=== PATIENT | female | born 1985 | race African-American/Black ===

== ENCOUNTER 2019-11-17 13:22 | Emergency (ER) | payer MEDICAID ==
[~2019-11-17] VITALS: Ht 160 cm; Wt 49.9 kg
[2019-11-17 13:30] VITALS: BP 124/70
[2019-11-17] MEDS ORDERED: Morphine Sulfate 4mg/ml Inj (IV USE ONLY) IVP ONE (14:00)
--- NOTE | 2019-11-17 14:07 | Emergency Room Report ---
History of Present Illness General Chief Complaint: Abdominal Pain Source: Patient, EMS Present Illness HPI Patient presents emergency department today complaint 2 days of worsening pelvic pain. She states the pain is worse on the left side rating into her groin. She denies any nausea or vomiting. States that her period was last month but it was only a small amount. She does have a implanted control so she does not have periods. She states that in addition her left labia has become more swollen very tender and painful. She is never had this before. No other complaints are noted. Symptoms noted to be severe. No other modifying factors. No other associated signs and symptoms. No other complaints were noted. Allergies: Coded Allergies: No Known Allergies (Unverified , 11/17/19) Patient History PMH Narrative History of ovarian cysts Past Surgical History: none Pertinent Family History: none Social History: Denies: smoking, alcohol use, drug use Reviewed Nursing Documentation: PMH: Agreed; PSxH: Agreed Nursing Documentation-PMH Past Medical History: No History, Except For Hx Asthma: Yes Review of Systems All Other Systems: negative except mentioned in HPI Physical Exam Vital Signs Date Time Temp Pulse Resp B/P (MAP) Pulse Ox O2 Delivery O2 Flow Rate FiO2 11/17/19 13:15 98.1 88 16 126/70 (88) 99 Room Air Sp02 EP Interpretation: reviewed, normal General Appearance: normal inspection, alert, mild distress - Due to pain Head: atraumatic Eyes: bilateral eye normal inspection ENT: normal ENT inspection, hearing grossly normal, normal voice Neck: normal inspection, full range of motion, supple, no bony tend Respiratory: normal inspection, lungs clear, normal breath sounds, no respiratory distress, no retraction, no wheezing Cardiovascular #1: regular rate, rhythm, no edema Gastrointestinal: normal inspection, normal bowel sounds, non tender, soft, no guarding, no hernia Genitourinary: no CVA tenderness, other - Left-sided labial swelling. Consistent with Bartholin cyst. Musculoskeletal: normal inspection, back normal, normal range of motion Neurologic: alert, responsive, speech normal, normal inspection Psychiatric: normal inspection, judgement/insight normal, mood/affect normal Skin: no rash Procedures Additional Procedure Procedure Narrative Bartholin's cyst debridement. Procedure note. After consent was obtained. Bartholin's cyst was localized on patient's left labial region. 1% lidocaine was injected into the vagina no wall. And 2 cc was used. There is adequate analgesia. Using a 11 blade I attempt to incise the Bartholin cyst from inside the vaginal canal. Unfortunately this was unsuccessful as the cyst appeared to be deeper than expected. Therefore further approach was abandoned. Instead using 18-gauge needle this was inserted into the area of maximal swelling approximately 10 cc of pus was aspirated. Patient felt much better fluctuance had disappeared after the aspiration. Therefore I feel the patient be discharged. Patient was given wound care instructions. Patient will be started on oral antibiotics. Recommend outpatient follow-up with NEUROSURGERY PHYSICIAN. Medical Decision Making Diagnostic Impression: Primary Impression: Bartholin cyst Additional Impressions: Ovarian cyst Pelvic pain ER Course Patient presents emergency department today complaint pelvic pain and labial swelling. Differential considerations for pelvic pain include ovarian cyst ovarian torsion UTI just name a few. Patient's exam is consistent with likely ovarian cyst. This was confirmed by ultrasound. There is no evidence of torsion. Patient has evidence of a Bartholin's cyst on exam. This was drained using a needle. Patient was given prescription for antibiotics pain medications. Recommend close outpatient follow-up. Patient is advised to follow up with primary doctor in 2-3 days and return the emergency room for any worsening symptoms and as needed. Labs Test 11/17/19 13:53 11/17/19 13:58 White Blood Count 15.8 K/UL (4.8-10.8) Red Blood Count 4.51 M/UL (4.20-5.40) Hemoglobin 13.2 G/DL (12.0-16.0) Hematocrit 41.0 % (37.0-47.0) Mean Corpuscular Volume 91 FL (80-99) Mean Corpuscular Hemoglobin 29.3 PG (27.0-31.0) Mean Corpuscular Hemoglobin Concent 32.3 G/DL (32.0-36.0) Red Cell Distribution Width 11.9 % (11.6-14.8) Platelet Count 217 K/UL (150-450) Mean Platelet Volume 8.0 FL (6.5-10.1) Neutrophils (%) (Auto) 83.5 % (45.0-75.0) Lymphocytes (%) (Auto) 9.4 % (20.0-45.0) Monocytes (%) (Auto) 5.9 % (1.0-10.0) Eosinophils (%) (Auto) 0.8 % (0.0-3.0) Basophils (%) (Auto) 0.4 % (0.0-2.0) Sodium Level 144 MMOL/L (136-145) Potassium Level 3.8 MMOL/L (3.5-5.1) Chloride Level 107 MMOL/L (98-107) Carbon Dioxide Level 28 MMOL/L (21-32) Anion Gap 9 mmol/L (5-15) Blood Urea Nitrogen 13 mg/dL (7-18) Creatinine 0.8 MG/DL (0.55-1.30) Estimat Glomerular Filtration Rate > 60 mL/min (>60) Glucose Level 100 MG/DL (74-106) Calcium Level 9.0 MG/DL (8.5-10.1) Total Bilirubin 0.8 MG/DL (0.2-1.0) Aspartate Amino Transf (AST/SGOT) 15 U/L (15-37) Alanine Aminotransferase (ALT/SGPT) 19 U/L (12-78) Alkaline Phosphatase 86 U/L (46-116) Total Protein 7.8 G/DL (6.4-8.2) Albumin 3.8 G/DL (3.4-5.0) Globulin 4.0 g/dL Albumin/Globulin Ratio 0.9 (1.0-2.7) Lipase 69 U/L (73-393) Urine Color Yellow Urine Appearance Clear Urine pH 5 (4.5-8.0) Urine Specific Olmitz 1.025 (1.005-1.035) Urine Protein Negative (NEGATIVE) Urine Glucose (UA) Negative (NEGATIVE) Urine Ketones Negative (NEGATIVE) Urine Blood Negative (NEGATIVE) Urine Nitrite Negative (NEGATIVE) Urine Bilirubin Negative (NEGATIVE) Urine Urobilinogen 4 MG/DL (0.0-1.0) Urine Leukocyte Esterase 1+ (NEGATIVE) Urine RBC 0 /HPF (0 - 2) Urine WBC 0-2 /HPF (0 - 2) Urine Squamous Epithelial Cells Few /LPF (NONE/OCC) Urine Bacteria Occasional /HPF (NONE) Urine Mucus Moderate /LPF (NONE/OCC) Urine HCG, Qualitative Negative (NEGATIVE) CT/MRI/US Diagnostic Results CT/MRI/US Diagnostic Results : Impression Pelvic ultrasound shows left-sided ovarian cyst. Last Vital Signs Date Time Temp Pulse Resp B/P (MAP) Pulse Ox O2 Delivery O2 Flow Rate FiO2 11/17/19 13:15 98.1 88 16 126/70 (88) 99 Room Air Status: improved Disposition: HOME, SELF-CARE Condition: Stable Scripts Ibuprofen* (MOTRIN*) 600 Mg Tablet 600 MG ORAL Q8H PRN for For Pain, #20 TAB 0 Refills Prov: Elver Cesar MD 11/17/19 Hydrocodone Bit/Acetaminophen 5-325* (NORCO 5-325*) 1 Each Tablet 1 TAB ORAL Q6H PRN for For Pain, #10 TAB 0 Refills Prov: Elver Cesar MD 11/17/19 Cephalexin* (KEFLEX*) 500 Mg Capsule 500 MG ORAL EVERY 12 HOURS, #14 CAP 0 Refills Prov: Elver Cesar MD 11/17/19 Trimethoprim/Sulfamethoxazole 160/800* (BACTRIM DS TABLET*) 1 Each Tablet 1 TAB ORAL TWICE A DAY for 7 Days, TAB Prov: Elver Cesar MD 11/17/19 Elver Cesar MD Nov 17, 2019 14:07
[2019-11-17 14:17] LABS: BASOPHILS % (AUTO) 0.4 % (0.0-2.0); EOSINOPHILS % (AUTO) 0.8 % (0.0-3.0); HEMOGLOBIN 13.2 G/DL (12.0-16.0); LYMPHOCYTES % (AUTO) 9.4 % (20.0-45.0); MEAN CORPUSCULAR VOLUME 91 FL (80-99); MONOCYTES % (AUTO) 5.9 % (1.0-10.0); NEUTROPHILS % (AUTO) 83.5 % (45.0-75.0); PLATELET COUNT 217 K/UL (150-450); RED BLOOD COUNT 4.51 M/UL (4.20-5.40); RED CELL DISTRIBUTION WIDTH 11.9 % (11.6-14.8); WHITE BLOOD COUNT 15.8 K/UL (4.8-10.8)
[2019-11-17 14:19] LABS: APPEARANCE,URINE CLEAR; BILIRUBIN, URINE NEGATIVE (NEGATIVE); GLUCOSE, URINE (UA) NEGATIVE (NEGATIVE); KETONES,URINE NEGATIVE (NEGATIVE); LEUKOCYTE ESTERASE ,URINE 1+ (NEGATIVE); NITRITE,URINE NEGATIVE (NEGATIVE); PH,URINE 5 (4.5-8.0); PROTEIN,URINE NEGATIVE (NEGATIVE); UROBILINOGEN,URINE 4 MG/DL (0.0-1.0)
[2019-11-17 14:24] LABS: COLOR,URINE YELLOW
[2019-11-17 14:30] LABS: ANION GAP 9 mmol/L (5-15); BLOOD UREA NITROGEN 13 mg/dL (7-18); CARBON DIOXIDE 28 MMOL/L (21-32); CHLORIDE 107 MMOL/L (98-107); CREATININE 0.8 MG/DL (0.55-1.30); POTASSIUM 3.8 MMOL/L (3.5-5.1); SODIUM 144 MMOL/L (136-145)
[2019-11-17] MEDS ORDERED: Lidocaine 1% MPF 10mg/ml 5ml ONE (14:30)
[2019-11-17 14:34] LABS: ALANINE AMINOTRANSFERASE 19 U/L (12-78); ALBUMIN 3.8 G/DL (3.4-5.0); ALBUMIN/GLOBULIN RATIO 0.9 (1.0-2.7); ALKALINE PHOSPHATASE 86 U/L (46-116); ASPARTATE AMINO TRANSFERASE 15 U/L (15-37); BILIRUBIN,TOTAL 0.8 MG/DL (0.2-1.0)
[2019-11-17] MEDS ORDERED: Lidocaine 1% MPF 10mg/ml 5ml IM ONE (15:15)
[2019-11-17] MEDS ORDERED: CEPHALEXIN500 MG ORAL (15:16)
[2019-11-17] MEDS ORDERED: BACTRIM DS TAB1 EAC1 ORAL (15:16)
[2019-11-17] MEDS ORDERED: NORCO 5-325 TA1 EACH ORAL (15:16)
[2019-11-17] MEDS ORDERED: IBUPROFEN600 MG ORAL (15:16)
--- NOTE | 2019-11-17 15:32 | Diagnostic Imaging Report ---
Indication: Vaginal bleeding for one day, history of subcutaneous contraceptive device Technique: Transabdominal and transvaginal images of the pelvis. Doppler interrogation of the ovaries Comparison: none Findings: Uterus measures 7 cm in length by 4 cm AP. The endometrium measures 3 mm thick. No myometrial abnormality. A few nonspecific bright echoes are seen in the cervical region. The left ovary demonstrates a 3.6 cm benign-appearing cyst. It measures 4 cm in length. It demonstrates normal flow on Doppler imaging. The right ovary measures 2.7 cm in length. It demonstrates normal flow on Doppler imaging. No free cul-de-sac fluid. Impression: No definite acute or significant abnormality demonstrated.
[2019-11-17 15:40] VITALS: BP 119/75
== END 2019-11-17 15:37 | disposition home or self-care (01) ==
LOC: EDBD 13:22 → EMR 13:57
DX: N75.0 Cyst of Bartholin's gland (principal); N83.202 Unspecified ovarian cyst, left side; R10.2 Pelvic and perineal pain
CPT/HCPCS: 36415; 56420; 76830; 76856; 80053; 81003; 81025; 83690; 85025; 96374; 96375; J2270; J2405; J7030; Z7502; 99284